=== PATIENT | female | born 1955 | race American Indian/Alaskan Native ===

== ENCOUNTER 2019-10-18 22:56 | Emergency (ER) | payer BC ==
[~2019-10-18] VITALS: Ht 154.9 cm; Wt 65.0 kg
[2019-10-19 00:24] LABS: CHLORIDE 106 mEq/L (98-107)
[2019-10-19 00:31] LABS: BASOPHILS % 0.8 % (0.0-2.0); EOSINOPHILS % 3.6 % (0.0-5.0); HEMATOCRIT. 44.5 % (36.0-48.0); HEMOGLOBIN. 14.8 g/dL (12.0-16.0); LYMPHOCYTES % 30.9 % (20.0-50.0); MEAN CORPUSCULAR HEMOGLOBIN 29.7 pg (28.0-32.0); MEAN PLATELET VOLUME 10.9 fl (7.4-10.4); MONOCYTES % 6.5 % (2.0-8.0); NEUTROPHILS % 58.2 % (40.0-76.0); PLATELET 231 x1000/uL (130-400); RED BLOOD CELL COUNT 4.99 mill/uL (4.2-5.4); RED CELL DISTRIBUTION WIDTH 12.7 % (11.6-14.6)
[2019-10-19] MEDS ORDERED: NITROGLYCERIN 0.4MG TABLET SL SL ONE (00:45)
[2019-10-19] MEDS ORDERED: ASPIRIN 325MG EC TABLET PO ONE (00:45)
[2019-10-19 07:11] VITALS: BP 105/55
== END 2019-10-19 07:14 | disposition home or self-care (01) ==
LOC: ER 22:56 → CANBEDREQ 10-19 08:03
DX: R07.89 Other chest pain (principal); E78.00 Pure hypercholesterolemia, unspecified; Z90.49 Acquired absence of other specified parts of digestive tract
CPT/HCPCS: 36415; 71045; 80053; 83880; 84484; 85025; 93005; 99284